=== PATIENT | male | born 1980 | race Two or more races ===

== ENCOUNTER 2017-01-02 09:07 | Emergency (ER) | payer MEDICAID ==
[~2017-01-02] VITALS: Ht 175.3 cm; Wt 112.0 kg
[2017-01-02 09:44] VITALS: BP 134/86
== END 2017-01-02 11:47 | disposition home or self-care (01) ==
LOC: ER 09:07
DX: G89.29 Other chronic pain (principal); M25.552 Pain in left hip; M85.60 Other cyst of bone, unspecified site
CPT/HCPCS: 72192

== ENCOUNTER 2017-01-24 08:54 | Emergency (ER) | payer MEDICAID ==
[~2017-01-24] VITALS: Ht 175.3 cm; Wt 110.7 kg
[2017-01-24] MEDS ORDERED: PROMETHAZINE HCL 25 MG/ML 1ML IV ONE ×2 (10:15→10:30)
[2017-01-24] MEDS ORDERED: NALBUPHINE HCL 10 MG/1ml INJECTION IV ONE ×3 (10:15→16:15)
[2017-01-24] MEDS ORDERED: SODIUM CHLORIDE 0.9% 1,000 ML IV ONE (10:16)
[2017-01-24 10:55] LABS: INR 0.98 (0.9-1.15); Partial Thromboplastin Time 29.5 sec (22.64-33.71); Prothrombin Time 10.7 sec (9.37-12.3)
[2017-01-24 10:56] LABS: Albumin 4.2 g/dL (3.4-5.0); Calcium 9.5 mg/dL (8.5-10.1); Magnesium 2.2 mg/dL (1.6-2.6); Potassium 3.6 mmol/L (3.5-5.1)
[2017-01-24 10:59] LABS: BUN/Creatinine Ratio 16.3; Bilirubin, Total 0.7 mg/dL (0.2-1.0)
[2017-01-24 11:47] LABS: Basophils # (auto) 0 uL; Basophils % (auto) 0.1 % (0.0-2.0); Eosinophils # (auto) 0 uL; Eosinophils % (auto) 0.1 % (0.0-7.0); Hematocrit 43.9 % (41.0-53.0); Hemoglobin 15.1 g/dL (13.5-17.5); Lymphocytes # (auto) 1.7 uL; Lymphocytes % (auto) 12.9 % (10.0-50.0); Mean Corpuscular Hemoglobin 32.6 pg (28.0-32.0); Mean Corpuscular Hgb Conc. 34.5 g/dL (32.0-36.0); Mean Corpuscular Volume 94.5 fL (80.0-100.0); Monocytes # (auto) 0.5 uL; Monocytes % (auto) 4.1 % (0.0-12.0); Neutrophils # (auto) 10.8 uL; Neutrophils % (auto) 82.8 % (37.0-80.0); Platelet Count (auto) 293 10^3/uL (140-450); Red Blood Cells 4.65 10^6/uL (4.5-5.90); Red Cell Distribution Width 12.6 % (11.8-14.3)
[2017-01-24] MEDS ORDERED: SODIUM CHLORIDE 0.9% 1,000 ML IV SCH (11:49)
[2017-01-24] MEDS ORDERED: LORazepam 0.5 MG TAB PO PRN (12:00)
[2017-01-24] MEDS ORDERED: NITROGLYCERIN 0.4 MG SL TAB SL PRN (12:00)
[2017-01-24] MEDS ORDERED: ACETAMINOPHEN 500 MG TAB PO PRN (12:00)
[2017-01-24] MEDS ORDERED: LACTULOSE 20Gm/30ML SOLN PO PRN (12:00)
[2017-01-24] MEDS ORDERED: TEMAZEPAM 15 MG CAP PO PRN (12:00)
[2017-01-24] MEDS ORDERED: MORPHINE SULF INJ 2 MG/ML SYRINGE 1ML IV PRN ×2 (12:00)
[2017-01-24] MEDS ORDERED: HYDROcodone-ACET 5/325MG TAB PO PRN (12:00)
[2017-01-24] MEDS ORDERED: PROMETHAZINE HCL 25 MG/ML 1ML IV PRN (12:00)
[2017-01-24 18:44] VITALS: BP 128/77
== END 2017-01-24 19:10 | disposition short-term general hospital (02) ==
LOC: ER 08:54 → TELE 08:55 → UNDOADMIN 08:55 → ER 19:10
DX: S72.002A Fracture of unspecified part of neck of left femur, initial encounter for closed fracture (principal); M84.559A Pathological fracture in neoplastic disease, hip, unspecified, initial encounter for fracture; K21.9 Gastro-esophageal reflux disease without esophagitis; W01.0XXA Fall on same level from slipping, tripping and stumbling without subsequent striking against object, initial encounter; Y93.89 Activity, other specified; Y92.89 Other specified places as the place of occurrence of the external cause; Y99.8 Other external cause status
CPT/HCPCS: 36415; 71010; 73502; 73721; 80053; 83735; 84443; 85025; 85610; 85652; 85730; 93005; 94761; 96361; 96374; 96375; 96376; 99285; J2270; J2300; J2550; J7030